=== PATIENT | female | born 1950 | race Caucasian/White ===

== ENCOUNTER → 2021-10-16 | Outpatient (CLI) | payer MEDICARE ==
[~2021-10-16] MED LIST: Coumadin5 MG PO; LOVASTATIN40 MG PO; METOPROLOL50 MG PO; PRILOSEC20 M1 PO; TRAMADOL HCL50 MG PO
== END | disposition home or self-care (01) ==
LOC: RESCLI 01:00
PROVIDERS: ATTEND Internal Medicine
DX: E78.5 Hyperlipidemia, unspecified (principal); E53.8 Deficiency of other specified B group vitamins; Z86.718 Personal history of other venous thrombosis and embolism; G47.00 Insomnia, unspecified; I10 Essential (primary) hypertension; G47.30 Sleep apnea, unspecified; Z79.899 Other long term (current) drug therapy

== ENCOUNTER → 2021-10-18 | Outpatient (CLI) | payer MEDICARE ==
[2021-10-18 10:51] LABS: INTERNATIONAL NORM RATIO 1.9 (2.0-3.5)
== END | disposition home or self-care (01) ==
LOC: LAB 10:14
PROVIDERS: ATTEND Internal Medicine
DX: Z86.718 Personal history of other venous thrombosis and embolism (principal)

== ENCOUNTER → 2022-02-25 | Outpatient (CLI) | payer MEDICARE ==
[2022-02-25 09:22] LABS: ALKALINE PHOSPHATASE 102 U/L (46-116); BUN 15 mg/dl (9-23); CHLORIDE 104 mmol/L (98-107); POTASSIUM 4.5 mmol/L (3.4-5.1); SGPT/ALT 23 U/L (10-49); TOTAL PROTEIN 7.4 gm/dL (6.0-8.0)
== END | disposition home or self-care (01) ==
LOC: LAB 08:28
PROVIDERS: Internal Medicine; ATTEND Internal Medicine
DX: I10 Essential (primary) hypertension (principal)

== ENCOUNTER → 2022-04-16 | Outpatient (CLI) | payer MEDICARE | END | disposition home or self-care (01) | LOC: RESCLI 00:01 | PROVIDERS: ATTEND Student in an Organized Health Care Education/Training Program | DX: E55.9 Vitamin D deficiency, unspecified (principal); G47.00 Insomnia, unspecified; I10 Essential (primary) hypertension; E78.5 Hyperlipidemia, unspecified; Z86.718 Personal history of other venous thrombosis and embolism; Z82.49 Family history of ischemic heart disease and other diseases of the circulatory system; Z98.890 Other specified postprocedural states; Z90.49 Acquired absence of other specified parts of digestive tract; Z90.710 Acquired absence of both cervix and uterus; Z79.02 Long term (current) use of antithrombotics/antiplatelets; Z79.899 Other long term (current) drug therapy ==

== ENCOUNTER → 2023-06-04 | Outpatient (CLI) | payer MEDICARE ==
[~2023-06-04] MED LIST changes: +BUSPIRONE10 MG PO; +FISH OIL 1,2001 EACH PO; +LIPITOR10 MG PO; +MAGNESIUM400 M1 PO; +VITAMIN B1250 MCG PO; +VITAMIN C1000 M5 PO; +VITAMIN D3125 MC1 PO; +XARELTO10 MG PO; +ZESTRIL10 MG PO
== END | disposition home or self-care (01) ==
LOC: RESCLI 03:36
PROVIDERS: ATTEND Internal Medicine
DX: E78.5 Hyperlipidemia, unspecified (principal); G47.00 Insomnia, unspecified; I10 Essential (primary) hypertension; I48.91 Unspecified atrial fibrillation; F41.9 Anxiety disorder, unspecified; Z86.718 Personal history of other venous thrombosis and embolism; Z98.890 Other specified postprocedural states; Z82.49 Family history of ischemic heart disease and other diseases of the circulatory system; Z90.49 Acquired absence of other specified parts of digestive tract; Z90.710 Acquired absence of both cervix and uterus; Z79.01 Long term (current) use of anticoagulants; Z79.899 Other long term (current) drug therapy

== ENCOUNTER 2023-06-06 20:48 | Inpatient (IN) | payer MEDICARE ==
[~2023-06-06] VITALS: Ht 152.4 cm; Wt 82.6 kg
[~2023-06-06 20:48] MED LIST changes: -BUSPIRONE10 MG PO; -FISH OIL 1,2001 EACH PO; -LIPITOR10 MG PO; -MAGNESIUM400 M1 PO; -VITAMIN B1250 MCG PO; -VITAMIN C1000 M5 PO; -VITAMIN D3125 MC1 PO; -XARELTO10 MG PO; -ZESTRIL10 MG PO
[2023-06-06 20:58] VITALS: BP 232/102
[2023-06-06] MEDS ORDERED: XARELTO10 MG PO (21:16)
[2023-06-06 21:17] VITALS: BP 232/104
[2023-06-06 21:33] LABS: BASO % 0.4 % (0.0-1.0); EOS # 0.2 10*3/uL (0.0-0.4); HEMATOCRIT 44.3 % (37.0-47.0); LYMPH # 2.3 10*3/uL (1.3-4.4); LYMPH % 31.5 % (27.0-41.0); MEAN CELL VOLUME 94.3 fl (81.0-99.0); MEAN CORPUSCULAR HGB 32.6 pg (27.0-31.0); MEAN CORPUSCULAR HGB CONC 34.5 g/dl (33.0-37.0); MONO # 0.6 10*3/uL (0.1-1.0); MONO % 7.8 % (3.0-9.0); NEUT # 4.2 10*3/uL (2.3-7.9); PLATELET COUNT AUTOMATED 189 10*3/uL (130-400); RED CELL DISTRI WIDTH 12.5 % (0-14.5); WHITE BLOOD COUNT 7.3 10*3/uL (4.8-10.8)
[2023-06-06 21:41] VITALS: BP 203/85
[2023-06-06 21:46] LABS: ACT PARTIAL THROMBO TIME 28.1 SECONDS (20.0-32.1)
[2023-06-06 21:55] LABS: ALKALINE PHOSPHATASE 112 U/L (46-116); BUN 22 mg/dl (9-23); CHLORIDE 107 mmol/L (98-107); LIPASE 65 U/L (12-53); SGPT/ALT 66 U/L (5-49); TOTAL PROTEIN 6.9 gm/dL (6.0-8.0)
[2023-06-06 21:59] LABS: ETHYL ALCOHOL < 3.0 mg/dl (<3)
[2023-06-06 22:29] VITALS: BP 212/84
[2023-06-06 22:29] LABS: BILIRUBIN Negative (Negative); BLOOD Negative (Negative); CLARITY Clear (Clear); COLOR Yellow (Yellow); GLUCOSE Negative (Negative); KETONE Negative (Negative); LEUKO ESTERASE 2+ (Negative); NITRITE Negative (Negative); PH 6.5 (4.5-8.0); UROBILINOGEN 0.2 E.U./dl (0.0-1.0)
[2023-06-06] MEDS ORDERED: hydrALAZINE hydrochloride 20 MG/ML VIAL IV ONE (22:30)
[2023-06-06 22:36] LABS: URINE AMPHETAMINES Negative (1000ng/ml); URINE BARBITURATES Negative (200ng/ml); URINE BENZODIAZEPINES Negative (200ng/ml); URINE CANNABINOIDS (THC) Negative (50ng/ml); URINE COCAINE Negative (300ng/ml); URINE METHADONE Negative (300ng/ml); URINE OPIATES Negative (300ng/ml); URINE PHENCYCLIDINE Negative (25ng/ml)
[2023-06-06 22:41] LABS: WBC 21-30 wbc/hpf (0-5)
[2023-06-06 23:10] VITALS: BP 189/80
[2023-06-06 23:34] VITALS: BP 188/74
[2023-06-06] MEDS ORDERED: ACETAMINOPHEN 325 MG TAB PO ONE (23:55)
[2023-06-07] VITALS (12 sets, daily range): BP systolic 147–199; BP diastolic 57–100
[2023-06-07] MEDS ORDERED: ACETAMINOPHEN 325 MG TAB PO PRN (00:05)
[2023-06-07] MEDS ORDERED: ACETAMINOPHEN 650 MG SUPP R PRN (00:05)
[2023-06-07] MEDS ORDERED: TEMAZEPAM 15 MG CAP PO PRN (00:05)
[2023-06-07] MEDS ORDERED: Acetaminophen/Hydrocodone 5 MG/325 MG TABLET PO PRN (00:05)
[2023-06-07] MEDS ORDERED: BISACODYL 10 MG SUPP R PRN (00:05)
[2023-06-07] MEDS ORDERED: MORPHINE Sulfate 2 MG/ML SYR IV PRN (00:05)
[2023-06-07] MEDS ORDERED: Ondansetron Hydrochloride 4 MG/2 ML VIAL IV PRN (00:05)
[2023-06-07] MEDS ORDERED: Magnesium Hydroxide 30 ML UDC PO PRN (00:05)
[2023-06-07] MEDS ORDERED: Ceftriaxone Sodium 1 GM in SYRINGE INFUSION 10 ML IV SCH ×2 (00:10→22:00)
[2023-06-07] MEDS ORDERED: Labetalol Hydrochloride 20 MG/4 ML SYR IV ONE (00:15)
[2023-06-07] MEDS ORDERED: Ceftriaxone Sodium 1 GM/10 ML SYR IV ONE (01:10)
[2023-06-07] MEDS ORDERED: ZESTRIL10 MG PO (02:09)
[2023-06-07] MEDS ORDERED: BUSPIRONE10 MG PO (02:10)
[2023-06-07] MEDS ORDERED: MAGNESIUM400 M1 PO (02:11)
[2023-06-07] MEDS ORDERED: VITAMIN C1000 M5 PO (02:11)
[2023-06-07] MEDS ORDERED: LIPITOR10 MG PO (02:12)
[2023-06-07] MEDS ORDERED: VITAMIN D3125 MC1 PO (02:14)
[2023-06-07] MEDS ORDERED: FISH OIL 1,2001 EACH PO (02:16)
[2023-06-07] MEDS ORDERED: VITAMIN B1250 MCG PO (02:16)
[2023-06-07] MEDS ORDERED: HYDROmorphONE Hydrochloride 0.5 MG/0.5 ML SYRINGE IV ONE ×2 (04:05→14:20)
[2023-06-07 06:04] LABS: ALKALINE PHOSPHATASE 105 U/L (46-116); BUN 19 mg/dl (9-23); CHLORIDE 108 mmol/L (98-107); CHOLESTEROL 144 mg/dL (<200); LDL CHOLESTEROL 70 mg/dL (9-159); POTASSIUM 3.7 mmol/L (3.4-5.1); SGPT/ALT 69 U/L (5-49); TOTAL PROTEIN 6.4 gm/dL (6.0-8.0); TRIGLYCERIDES 190 mg/dl (<150)
[2023-06-07 06:07] LABS: BASO % 0.3 % (0.0-1.0); EOS # 0.2 10*3/uL (0.0-0.4); EOS % 2.7 % (1.0-4.0); HEMATOCRIT 41.5 % (37.0-47.0); LYMPH # 2.1 10*3/uL (1.3-4.4); MEAN CELL VOLUME 94.5 fl (81.0-99.0); MEAN CORPUSCULAR HGB 32.1 pg (27.0-31.0); MEAN PLATELET VOLUME 10.6 fl (9.6-12.3); MONO # 0.5 10*3/uL (0.1-1.0); NEUT # 4.2 10*3/uL (2.3-7.9); NEUT % 59.9 % (47.0-73.0); PLATELET COUNT AUTOMATED 192 10*3/uL (130-400); RED BLOOD COUNT 4.39 10*6/uL (4.10-5.10); RED CELL DISTRI WIDTH 12.7 % (0-14.5)
[2023-06-07 07:03] LABS: VITAMIN D, 25-HYDROXY 77.5 ng/mL (30-100)
[2023-06-07] MEDS ORDERED: IOHEXOL 350 MG/ML 100 ML VIAL IV ONE (07:05)
[2023-06-07] MEDS ORDERED: SODIUM CHLORIDE 0.9% 100 ML BAG IV ONE (07:05)
[2023-06-07] MEDS ORDERED: LISINOPRIL 10 MG TAB PO SCH (10:00)
[2023-06-07] MEDS ORDERED: amLODIPine besylate 5 MG TAB PO SCH (10:00)
[2023-06-07] MEDS ORDERED: Ketorolac Tromethamine 30 MG/ML VIAL IV ONE (19:50)
[2023-06-07] MEDS ORDERED: busPIRone Hydrochloride 10 MG TAB PO SCH (22:00)
[2023-06-07] MEDS ORDERED: ATORVASTATIN CALCIUM 80 MG TAB PO SCH (22:00)
[2023-06-08] VITALS (8 sets, daily range): BP systolic 121–189; BP diastolic 59–81
[2023-06-08 06:16] LABS: BASO % 0.3 % (0.0-1.0); EOS # 0.2 10*3/uL (0.0-0.4); EOS % 3.1 % (1.0-4.0); HEMATOCRIT 42.2 % (37.0-47.0); LYMPH # 1.9 10*3/uL (1.3-4.4); MEAN CELL VOLUME 94.6 fl (81.0-99.0); MEAN CORPUSCULAR HGB 31.8 pg (27.0-31.0); MEAN CORPUSCULAR HGB CONC 33.6 g/dl (33.0-37.0); MEAN PLATELET VOLUME 10.3 fl (9.6-12.3); MONO # 0.5 10*3/uL (0.1-1.0); MONO % 8.1 % (3.0-9.0); NEUT # 3.8 10*3/uL (2.3-7.9); NEUT % 58.2 % (47.0-73.0); PLATELET COUNT AUTOMATED 193 10*3/uL (130-400); RED BLOOD COUNT 4.46 10*6/uL (4.10-5.10); RED CELL DISTRI WIDTH 12.9 % (0-14.5); WHITE BLOOD COUNT 6.4 10*3/uL (4.8-10.8)
[2023-06-08] MEDS ORDERED: Ketorolac Tromethamine 30 MG/ML VIAL IV ONE (08:00)
[2023-06-08] MEDS ORDERED: ASCORBIC ACID 500 MG TAB PO SCH (08:00)
[2023-06-08 08:20] LABS: ALKALINE PHOSPHATASE 122 U/L (46-116); BUN 20 mg/dl (9-23); CHLORIDE 106 mmol/L (98-107); POTASSIUM 3.8 mmol/L (3.4-5.1); SGPT/ALT 184 U/L (5-49); TOTAL PROTEIN 6.3 gm/dL (6.0-8.0)
[2023-06-08] MEDS ORDERED: MAGNESIUM OXIDE 400 MG TAB PO SCH (10:00)
[2023-06-08] MEDS ORDERED: Fish Oil 500 MG CAP PO SCH (10:00)
[2023-06-08] MEDS ORDERED: Cholecalciferol 5,000 IU CAP (125 MCG) PO SCH (10:00)
[2023-06-08] MEDS ORDERED: ASPIRIN ENTERIC COATED 81 MG TAB PO SCH (10:00)
[2023-06-08] MEDS ORDERED: RIVAROXABAN 10 MG TAB PO SCH (10:00)
[2023-06-08] MEDS ORDERED: SODIUM CHLORIDE 0.9% 1,000 ML IV ONE (11:55)
[2023-06-09] VITALS: BP 156/62
[2023-06-09 09:35] VITALS: BP 177/75
[2023-06-09] MEDS ORDERED: LISINOPRIL 20 MG TAB PO SCH (10:00)
[2023-06-09 10:27] VITALS: BP 170/60
[2023-06-09 12:00] VITALS: BP 166/62
[2023-06-09] MEDS ORDERED: LEVOFLOXACIN 500 MG TAB PO SCH (12:50)
[2023-06-09] MEDS ORDERED: amLODIPine besylate 5 MG TAB PO ONE (13:05)
[2023-06-09 16:00] VITALS: BP 178/75
[2023-06-09 20:00] VITALS: BP 172/71
[2023-06-10 00:22] VITALS: BP 165/66
[2023-06-10] MEDS ORDERED: ATORVASTATIN CA80 M1 PO (07:33)
[2023-06-10] MEDS ORDERED: LEVOFLOXACIN500 MG PO (07:33)
[2023-06-10] MEDS ORDERED: ASPIRIN ADULT L81 M2 PO (07:33)
[2023-06-10] MEDS ORDERED: FISH OIL 500 M1 EAC3 PO (07:33)
[2023-06-10] MEDS ORDERED: LISINOPRIL20 MG PO (07:33)
[2023-06-10] MEDS ORDERED: AMLODIPINE BESYL5 MG PO (07:33)
[2023-06-10 08:00] VITALS: BP 188/71
[2023-06-10 08:19] LABS: ALKALINE PHOSPHATASE 118 U/L (46-116); BUN 13 mg/dl (9-23); CHLORIDE 108 mmol/L (98-107); SGPT/ALT 109 U/L (5-49); TOTAL PROTEIN 6.7 gm/dL (6.0-8.0)
[2023-06-10] MEDS ORDERED: amLODIPine besylate 5 MG TAB PO SCH (10:00)
== END 2023-06-10 10:10 | disposition home or self-care (01) | DRG 305 ==
LOC: ED 20:48 → EDHOLD 06-07 00:04 → 4E 06-07 00:04
PROVIDERS: Internal Medicine; Registered Nurse; Student in an Organized Health Care Education/Training Program; ADMIT Student in an Organized Health Care Education/Training Program; ATTEND Student in an Organized Health Care Education/Training Program
DX: I16.1 Hypertensive emergency (principal); N39.0 Urinary tract infection, site not specified; N17.9 Acute kidney failure, unspecified; J98.11 Atelectasis; E66.9 Obesity, unspecified; K74.60 Unspecified cirrhosis of liver; I10 Essential (primary) hypertension; E80.6 Other disorders of bilirubin metabolism; R74.01 Elevation of levels of liver transaminase levels; K76.0 Fatty (change of) liver, not elsewhere classified; E78.1 Pure hyperglyceridemia; R73.9 Hyperglycemia, unspecified; E78.5 Hyperlipidemia, unspecified; Z86.718 Personal history of other venous thrombosis and embolism; Z90.49 Acquired absence of other specified parts of digestive tract; Z90.710 Acquired absence of both cervix and uterus; Z82.3 Family history of stroke; Z68.35 Body mass index [BMI] 35.0-35.9, adult; Z88.8 Allergy status to other drugs, medicaments and biological substances; Z88.5 Allergy status to narcotic agent

== ENCOUNTER 2024-04-05 21:02 | Emergency (ER) | payer MEDICARE ==
[~2024-04-05] VITALS: Ht 152.4 cm; Wt 79.4 kg
[~2024-04-05 21:02] MED LIST changes: +AMLODIPINE BESYL5 MG PO; +ASPIRIN ADULT L81 M2 PO; +ATORVASTATIN CA80 M1 PO; +BUSPIRONE10 MG PO; +FISH OIL 1,2001 EACH PO; +FISH OIL 500 M1 EAC3 PO; +LEVOFLOXACIN500 MG PO; +LIPITOR10 MG PO; +LISINOPRIL20 MG PO; +MAGNESIUM400 M1 PO; +VITAMIN B1250 MCG PO; +VITAMIN C1000 M5 PO; +VITAMIN D3125 MC1 PO; +XARELTO10 MG PO; +ZESTRIL10 MG PO
[2024-04-05 21:11] VITALS: BP 169/72
[2024-04-05] MEDS ORDERED: SODIUM CHLORIDE 0.9% 500 ML IV ONE (21:20)
[2024-04-05 21:43] LABS: BASO % 0.5 % (0.0-1.0); EOS # 0.2 10*3/uL (0.0-0.4); EOS % 2.1 % (1.0-4.0); HEMATOCRIT 44.4 % (37.0-47.0); MEAN CELL VOLUME 90.2 fl (81.0-99.0); MEAN CORPUSCULAR HGB 32.1 pg (27.0-31.0); MEAN CORPUSCULAR HGB CONC 35.6 g/dl (33.0-37.0); MEAN PLATELET VOLUME 10.4 fl (9.6-12.3); MONO # 0.6 10*3/uL (0.1-1.0); MONO % 6.4 % (3.0-9.0); NEUT # 5.5 10*3/uL (2.3-7.9); PLATELET COUNT AUTOMATED 212 10*3/uL (130-400); RED BLOOD COUNT 4.92 10*6/uL (4.10-5.10); RED CELL DISTRI WIDTH 11.9 % (0-14.5); WHITE BLOOD COUNT 8.8 10*3/uL (4.8-10.8)
[2024-04-05] MEDS ORDERED: INSULIN REGULAR, HUMAN 15 UNIT IV ONE (22:20)
[2024-04-05] MEDS ORDERED: INSULIN REGULAR, HUMAN 1 UNIT/0.01 ML IV ONE (22:25)
[2024-04-06] MEDS ORDERED: HUMALOG100 UNIT/1 SQ (15:49)
== END 2024-04-06 00:16 | disposition home or self-care (01) ==
LOC: ED 21:02
PROVIDERS: Internal Medicine
DX: E11.65 Type 2 diabetes mellitus with hyperglycemia (principal); I10 Essential (primary) hypertension; K21.9 Gastro-esophageal reflux disease without esophagitis; E78.00 Pure hypercholesterolemia, unspecified; Z86.718 Personal history of other venous thrombosis and embolism; Z88.5 Allergy status to narcotic agent; Z90.49 Acquired absence of other specified parts of digestive tract; Z90.710 Acquired absence of both cervix and uterus; Z98.890 Other specified postprocedural states

== ENCOUNTER 2024-04-06 13:25 | Emergency (ER) | payer MEDICARE ==
[~2024-04-06] VITALS: Ht 152.4 cm; Wt 79.4 kg
[2024-04-06 13:44] VITALS: BP 121/56
[2024-04-06 14:23] LABS: BASO % 0.3 % (0.0-1.0); EOS # 0.1 10*3/uL (0.0-0.4); EOS % 1.6 % (1.0-4.0); HEMATOCRIT 43.9 % (37.0-47.0); MEAN CELL VOLUME 90.5 fl (81.0-99.0); MEAN CORPUSCULAR HGB 31.8 pg (27.0-31.0); MEAN CORPUSCULAR HGB CONC 35.1 g/dl (33.0-37.0); MEAN PLATELET VOLUME 10.1 fl (9.6-12.3); MONO # 0.5 10*3/uL (0.1-1.0); MONO % 6.3 % (3.0-9.0); NEUT # 5.4 10*3/uL (2.3-7.9); NEUT % 67.8 % (47.0-73.0); PLATELET COUNT AUTOMATED 204 10*3/uL (130-400); RED BLOOD COUNT 4.85 10*6/uL (4.10-5.10); RED CELL DISTRI WIDTH 11.9 % (0-14.5); WHITE BLOOD COUNT 7.9 10*3/uL (4.8-10.8)
[2024-04-06] MEDS ORDERED: SODIUM CHLORIDE 0.9% 1,000 ML IV ONE (14:35)
[2024-04-06 14:52] LABS: POTASSIUM 4.1 mmol/L (3.4-5.1); TOTAL PROTEIN 6.8 gm/dL (6.0-8.0)
[2024-04-06 15:04] LABS: BILIRUBIN Negative (Negative); BLOOD Negative (Negative); CLARITY Clear (Clear); COLOR Yellow (Yellow); GLUCOSE 3+ (Negative); KETONE 1+ (Negative); LEUKO ESTERASE Negative (Negative); NITRITE Negative (Negative); PH 5.5 (4.5-8.0); SPECIFIC GRAVITY >= 1.030 (1.001-1.030); UROBILINOGEN 0.2 E.U./dl (0.0-1.0)
[2024-04-06] MEDS ORDERED: INSULIN REGULAR, HUMAN 1 UNIT/0.01 ML IV ONE (15:05)
[2024-04-06] MEDS ORDERED: HUMALOG100 UNIT/1 SQ (15:49)
[2024-04-06 16:17] LABS: BACTERIA 1+
== END 2024-04-06 17:36 | disposition home or self-care (01) ==
LOC: ED 13:25
PROVIDERS: Nurse Practitioner Family
DX: E11.65 Type 2 diabetes mellitus with hyperglycemia (principal); I16.0 Hypertensive urgency; K21.9 Gastro-esophageal reflux disease without esophagitis; E78.00 Pure hypercholesterolemia, unspecified; Z79.899 Other long term (current) drug therapy; Z88.5 Allergy status to narcotic agent; Z86.718 Personal history of other venous thrombosis and embolism; Z90.710 Acquired absence of both cervix and uterus; Z90.49 Acquired absence of other specified parts of digestive tract; Z98.890 Other specified postprocedural states

== ENCOUNTER → 2024-04-07 | Outpatient (CLI) | payer MEDICARE ==
[~2024-04-07] MED LIST changes: +HUMALOG100 UNIT/1 SQ
== END | disposition home or self-care (01) ==
LOC: RESCLI 10:46
PROVIDERS: ATTEND Student in an Organized Health Care Education/Training Program
DX: E11.65 Type 2 diabetes mellitus with hyperglycemia (principal); E55.9 Vitamin D deficiency, unspecified; E78.5 Hyperlipidemia, unspecified; I10 Essential (primary) hypertension; K76.0 Fatty (change of) liver, not elsewhere classified; Z86.718 Personal history of other venous thrombosis and embolism; Z90.49 Acquired absence of other specified parts of digestive tract; Z98.890 Other specified postprocedural states; Z79.899 Other long term (current) drug therapy

== ENCOUNTER → 2024-05-05 | Outpatient (CLI) | payer MEDICARE | END | disposition home or self-care (01) | LOC: RESCLI 00:37 | PROVIDERS: ATTEND Internal Medicine | DX: E78.5 Hyperlipidemia, unspecified (principal); I10 Essential (primary) hypertension; E55.9 Vitamin D deficiency, unspecified; F41.9 Anxiety disorder, unspecified; E11.65 Type 2 diabetes mellitus with hyperglycemia; K76.0 Fatty (change of) liver, not elsewhere classified; Z86.718 Personal history of other venous thrombosis and embolism; Z79.899 Other long term (current) drug therapy; Z98.890 Other specified postprocedural states ==

== ENCOUNTER → 2024-07-28 | Outpatient (CLI) | payer MEDICARE ==
[2024-07-28 11:29] LABS: ALKALINE PHOSPHATASE 150 U/L (46-116); BUN 15 mg/dl (9-23); CHLORIDE 104 mmol/L (98-107); CHOLESTEROL 107 mg/dL (<200); LDL CHOLESTEROL 46 mg/dL (9-159); POTASSIUM 4.3 mmol/L (3.4-5.1); SGPT/ALT 90 U/L (5-49); TOTAL PROTEIN 7.1 gm/dL (6.0-8.0); TRIGLYCERIDES 153 mg/dl (<150)
== END | disposition home or self-care (01) ==
LOC: RESCLI 01:36
PROVIDERS: ATTEND Student in an Organized Health Care Education/Training Program
DX: E11.65 Type 2 diabetes mellitus with hyperglycemia (principal); E78.5 Hyperlipidemia, unspecified; I10 Essential (primary) hypertension; E55.9 Vitamin D deficiency, unspecified; K76.0 Fatty (change of) liver, not elsewhere classified; F41.9 Anxiety disorder, unspecified; R11.0 Nausea; Z86.718 Personal history of other venous thrombosis and embolism; Z79.899 Other long term (current) drug therapy; Z98.890 Other specified postprocedural states

== ENCOUNTER → 2024-08-09 | Outpatient (CLI) | payer MEDICARE | END | disposition home or self-care (01) | LOC: RAD 08:12 | PROVIDERS: ATTEND Family Medicine | DX: Z13.820 Encounter for screening for osteoporosis (principal); M85.89 Other specified disorders of bone density and structure, multiple sites; M81.0 Age-related osteoporosis without current pathological fracture; Z00.00 Encounter for general adult medical examination without abnormal findings ==

== ENCOUNTER → 2024-09-29 | Outpatient (CLI) | payer MEDICARE | END | disposition home or self-care (01) | LOC: RESCLI 08:46 | PROVIDERS: ATTEND Internal Medicine | DX: E11.65 Type 2 diabetes mellitus with hyperglycemia (principal); E55.9 Vitamin D deficiency, unspecified; I10 Essential (primary) hypertension; E78.5 Hyperlipidemia, unspecified; M85.80 Other specified disorders of bone density and structure, unspecified site; Z86.718 Personal history of other venous thrombosis and embolism ==

== ENCOUNTER → 2024-11-01 | Outpatient (CLI) | payer MEDICARE | END | disposition home or self-care (01) | LOC: MAMMO 08:43 | PROVIDERS: ATTEND Internal Medicine | DX: Z12.31 Encounter for screening mammogram for malignant neoplasm of breast (principal) ==

== ENCOUNTER → 2025-01-19 | Outpatient (CLI) | payer MEDICARE | END | disposition home or self-care (01) | LOC: RESCLI 01:45 | PROVIDERS: ATTEND Internal Medicine | DX: E11.65 Type 2 diabetes mellitus with hyperglycemia (principal); I10 Essential (primary) hypertension; E78.5 Hyperlipidemia, unspecified; M85.80 Other specified disorders of bone density and structure, unspecified site; E55.9 Vitamin D deficiency, unspecified; K21.9 Gastro-esophageal reflux disease without esophagitis; Z86.718 Personal history of other venous thrombosis and embolism; Z79.899 Other long term (current) drug therapy; Z98.890 Other specified postprocedural states ==